=== PATIENT | female | born 1955 | race Caucasian/White ===

== ENCOUNTER 2023-12-26 19:03 | Inpatient (IN) | payer BC, OTHER ==
[2023-12-26 19:27] LABS: PT Prothrombin Time 11.6 SECONDS (9.4-12.5); Protime INR 1.04
[2023-12-26 19:30] LABS: Absolute Basophils 0.1 K/uL (0-0.5); Absolute Eosinophils 0.2 K/uL (0-0.5); Absolute Lymphocytes (CBC) 4.3 K/uL (0.7-4.9); Absolute Monocytes 0.5 K/uL (0.1-1.3); Absolute Neutrophil 6.7 K/uL (1.8-8.0); Basophils % 0.5 % (0-1.3); Hematocrit 40.6 % (36.0-45.0); Hemoglobin 13.6 g/dL (12.0-15.0); Lymphocytes % 36.1 % (15.3-44.8); MCH 30.5 pg (27.0-35.0); MCHC 33.5 g/dL (32.0-36.0); MCV 91.1 fL (80-100); MPV 8.6 fL (7.6-11.3); Monocytes % 4.5 % (3.3-12.3); Neutrophils % 56.9 % (41.7-73.7); Nucleated Red Blood Cells % 0.1 % (0-0); Platelets 239 thou/uL (152-406); RBC Red Blood Cell Count 4.45 M/uL (3.86-4.86)
[2023-12-26 19:39] LABS: Anion Gap 9.9 mEq/L (5.0-15.0); Potassium 3.9 mEq/L (3.5-5.1)
--- NOTE | 2023-12-26 19:51 | RAD REPORT ---
EXAMINATION: ONE VIEW CHEST XR CLINICAL INDICATION: COPD TECHNIQUE: Frontal chest projection is submitted. Examination is limited by patient positioning and t echnique. COMPARISON: No prior exam. FINDINGS: The lungs are diffusely emphysematous but grossly clear. The heart is upper limit of normal in size. No displaced fractures identified. IMPRESSION: COPD without an acute process suspected.
[2023-12-26] MEDS ORDERED: ONDANSETRON 4 MG/2 ML VIAL ONE (19:58)
[2023-12-26] MEDS ORDERED: CEFTRIAXONE 1000 MG/VIAL ONE (19:58)
[2023-12-26] MEDS ORDERED: NA CHLORIDE 0.9% 50 ML ONE (19:59)
--- NOTE | 2023-12-26 20:08 | EDPHYS ---
Physician Documentation [facility] Name: Kaia Chris Age: 68 yrs Sex: Female : 1955 Arrival Date: 12/26/2023 Time: 19:03 Bed 4 Private MD: ED Physician Cheryle Ramos HPI: 12/25 19:50 This 68 yrs old Female presents to ER via EMS with complaints of Shortness Of Breath. ci 19:50 Patient is a 68-year-old female with PMH COPD who presents to the ED with chief ci complaint of respiratory distress, shortness of breath that began this evening. Patient was at [facility] smoking she became hypoxic. Upon EMS arrival, patient was hypoxic at 78%, placed on BiPAP. Patient received Solu-Medrol 125 mg, magnesium, nebulizer treatments prior to arrival.. Historical: - Allergies: 19:09 NSAIDS; kc6 21:47 Iodine; mt4 - Home Meds: 19:09 Unable to obtain [Active]; kc6 - PMHx: 19:09 Chronic obstructive lung disease; kc6 - PSHx: 19:09 section; Cholecystectomy; kc6 - Immunization history:: Adult Immunizations unknown. - Infectious Disease History:: Denies. - Social history:: Smoking status: Patient reports the use of cigarette tobacco products, smokes one pack cigarettes per day. - History obtained from: EMS. ROS: 19:50 Constitutional: Negative for fever, chills, and weight loss, ci 19:50 Respiratory: Positive for shortness of breath, wheezing, 19:50 Abdomen/GI: Positive for Negative for nausea, vomiting, and diarrhea, 19:50 Neuro: Negative for altered mental status, headache, Exam: 19:50 Constitutional: This is a well developed, well nourished patient who is awake, alert, ci and in no acute distress. Head/Face: Normocephalic, atraumatic. 19:50 Respiratory: Breath sounds: wheezing: expiratory that is moderate, is heard diffusely, 19:50 ECG was reviewed by the Attending Physician. EKG shows normal sinus rhythm, LBBB, HR 80 ci 19:50 Eyes: Pupils equal round and reactive to light, extra-ocular motions intact. Lids and ci lashes normal. Conjunctiva and sclera are non-icteric and not injected. Cornea within normal limits. Periorbital areas with no swelling, redness, or edema. ENT: Nares patent. No nasal discharge, no septal abnormalities noted. Tympanic membranes are normal and external auditory canals are clear. Oropharynx with no redness, swelling, or masses, exudates, or evidence of obstruction, uvula midline. Mucous membranes moist. Neck: Trachea midline, no thyromegaly or masses palpated, and no cervical lymphadenopathy. Supple, full range of motion without nuchal rigidity, or vertebral point tenderness. No Meningismus. Chest/axilla: Normal chest wall appearance and motion. Nontender with no deformity. No lesions are appreciated. Cardiovascular: Regular rate and rhythm with a normal S1 and S2. No gallops, murmurs, or rubs. Normal PMI, no JVD. No pulse deficits. Abdomen/GI: Soft, non-tender, with normal bowel sounds. No distension or tympany. No guarding or rebound. No evidence of tenderness throughout. Skin: Warm, dry with normal turgor. Normal color with no rashes, no lesions, and no evidence of cellulitis. Neuro: Awake and alert, GCS 15, oriented to person, place, time, and situation. Cranial nerves II-XII grossly intact. Motor strength 5/5 in all extremities. Sensory grossly intact. Cerebellar exam normal. Normal gait. Vital Signs: 19:05 BP 154 / 74; Pulse 83; Resp 25 S; Temp 97.6(A); Pulse Ox 100% on BiPAP; kc6 20:13 BP 140 / 68; Pulse 74; Resp 15; Pulse Ox 100% on BiPAP; mt4 20:25 Temp 96.8(A); mt4 21:37 BP 142 / 66; Pulse 72; Resp 19; Pulse Ox 100% on BiPAP; mt4 MDM: 19:05 Medical Screening Exam initiated ci 19:50 Differential diagnosis: asthma, CHF exacerbation, Chronic Obstructive Pulmonary Disease ci pneumonia, pulmonary edema, Sepsis. Data reviewed: vital signs, nurses notes. ED course: Presents with respiratory distress, improving on arrival. Patient on the CPAP, will obtain labs, imaging and admit for further management.. 20:05 ED course: I have personally spent 45 minutes of critical care time, exclusive of time ci spent on any procedures, in evaluation and management of this critically ill patient's condition of respiratory failure. I provided the following critical care treatment noninvasive mechanical ventilation . 12/25 19:06 Order name: Basic Metabolic Panel; Complete Time: 19:49 ci 12/25 19:06 Order name: CBC with Diff; Complete Time: 19:49 ci 12/25 19:06 Order name: NT PRO-BNP; Complete Time: 19:49 ci 12/25 19:55 Interpretation: Abnormal: NT PRO-BNP 960. ci 12/25 19:06 Order name: Troponin HS; Complete Time: 19:49 ci 12/25 19:06 Order name: Blood Culture Adult (2) ci 12/25 19:06 Order name: Lactate w/ 2H reflex if indic.; Complete Time: 19:49 ci 12/25 19:55 Interpretation: Abnormal: LAC 3.4. ci 12/25 19:06 Order name: Protime (+inr); Complete Time: 19:49 ci 12/25 19:06 Order name: Ptt, Activated; Complete Time: 19:49 ci 12/25 19:06 Order name: ABG ci 12/25 20:38 Order name: CBC with Automated Diff EDMS 12/25 20:38 Order name: Comprehensive Metabolic Panel EDMS 12/25 20:38 Order name: Creatine Phosphokinase EDMS 12/25 20:38 Order name: Lactate w/ 2H reflex if indic. EDMS 12/25 20:38 Order name: Liver (Hepatic) Function EDMS 12/25 20:38 Order name: Magnesium EDMS 12/25 20:38 Order name: NT PRO-BNP EDMS 12/25 20:38 Order name: Phosphorus EDMS 12/25 20:38 Order name: PTT, Activated Partial Thromb EDMS 12/25 20:38 Order name: Thyroid Stimulating Hormone EDMS 12/25 20:38 Order name: Urinalysis w/ reflexes EDMS 12/25 20:38 Order name: Lipid Profile EDMS 12/25 20:38 Order name: Lipid Profile EDMS 12/25 21:41 Order name: Ghost Lactate-NO COLLECT Timer EDMS 12/25 19:06 Order name: XRAY Chest (1 view); Complete Time: 19:54 ci 12/25 20:39 Order name: Chest For Pe Angio EDMS 12/25 20:38 Order name: CONS Physician Consult EDMS 12/25 20:38 Order name: Respiratory Therapy Consult EDMS 12/25 19:06 Order name: Cardiac monitoring; Complete Time: 19:13 ci 12/25 19:06 Order name: EKG - Nurse/Tech; Complete Time: 19:21 ci 12/25 19:06 Order name: IV Saline Lock; Complete Time: 19:13 ci 12/25 19:06 Order name: Labs collected and sent ci 12/25 19:06 Order name: O2 Per Protocol; Complete Time: 19:13 ci 12/25 19:06 Order name: O2 Sat Monitoring; Complete Time: 19:13 ci Administered Medications: 20:08 Not Given (Duplicate Order): ondansetron 2 mg IVP once; over 2 minutes ci 20:12 Drug: Rocephin IV 1 grams IV at calculated rate once; Given slow IV push per pharmacy mt4 instructions Route: IV; Rate: calculated rate; Site: left wrist; 21:06 Follow up: Response: No adverse reaction mt4 22:00 Follow up: Response: No adverse reaction; IV Status: Completed infusion; IV Intake: [id number] 20:12 Drug: Ondansetron IVP 4 mg IVP once; over 2 minutes Route: IVP; Site: left wrist; mt4 21:05 Follow up: Response: No adverse reaction mt4 Disposition: 20:05 Critical Care:. ci Disposition Summary: 12/26/23 20:06 Hospitalization Ordered Notes: Hospitalization Status: Inpatient Admission ci Provider: Raegan Murguia Condition: Fair ci Problem: an acute exacerbation ci Symptoms: are unchanged ci Bed/Room Type: Standard ci Location: Intensive Care Unit(12/26/23 20:47) ci Room Assignment: 2-(12/26/23 20:48) [facility] Diagnosis - COPD/ Chronic obstructive pulmonary disease with (acute) exacerbation ci Forms: - Medication Reconciliation Form ci - SBAR form ci - Leadership Thank You Letter ci Critical care time excluding procedures: 20:05 Critical care time: Bedside Care: 45 minutes. Total time: 45 minutes ci Signatures: Dispatcher [employer] EDAnastasia Horan, RN RN kc6 Cheryle Ramos Kelsey Maroul [facility] Toan Billingsley RN RN mt4 Zion Marsh RN bm8 Corrections: (The following items were deleted from the chart) 19:07 19:07 BASIC METABOLIC PANEL+C.LAB.BRZ ordered. EDMS EDMS 19: 19:07 CBC+H.LAB.BRZ ordered. EDMS EDMS 19: 19:07 PROBNP+C.LAB.BRZ ordered. EDMS EDMS 19: 19:07 Troponin High Sensitivity+C.LAB.BRZ ordered. EDMS EDMS 19: 19:07 BLOOD CULTURE*+BA.LAB.BRZ ordered. EDMS EDMS 19: 19:07 LACTATE+C.LAB.BRZ ordered. EDMS EDMS 19: 19:07 PROTIME (+INR)+COAG.LAB.BRZ ordered. EDMS EDMS 19: 19:07 PTT, ACTIVATED+COAG.LAB.BRZ ordered. EDMS EDMS 19: 19:07 Chest Single View+RAD.RAD.BRZ ordered. EDMS EDMS 19: 19:07 Arterial Blood Gas+RC.LAB.BRZ ordered. EDMS EDMS 19:53 19:50 Respiratory: Breath sounds: wheezing: expiratory that is moderate, is heard ci diffusely, ci 20:47 20:06 Telemetry/MedSurg (Inpatient) ci ci 20:47 20:06 ci ci 20:48 20:47 ci kmf
--- NOTE | 2023-12-26 20:08 | ER ---
Nurse's Notes [facility] Name: Kaia Chris Age: 68 yrs Sex: Female : 1955 Arrival Date: 12/26/2023 Time: 19:03 Bed 4 Private MD: Diagnosis: COPD/ Chronic obstructive pulmonary disease with (acute) exacerbation Presentation: 12/25 19:05 Chief complaint: EMS states: sudden onset SOB that started 30min [employer] while smoking a kc6 cigarette outside of [facility]. pt attempted to use her rescue inhaler with no relief. EMS reports SPO2 of 78% on RA, pt placed on bipap and SPO2 increased to 100%. Coronavirus screen: At this time, the client does not indicate any symptoms associated with coronavirus-19. Ebola Screen: No symptoms or risks identified at this time. Initial Sepsis Screen: Does the patient meet any 2 criteria? RR > 20 per min. Does the patient have a suspected source of infection? No. Patient's initial sepsis screen is negative. Risk Assessment: Do you want to hurt yourself or someone else? Patient reports no desire to harm self or others. Onset of symptoms was December 26, 2023. Care prior to arrival: Medication(s) given: Albuterol Neb x 1, Atrovent Neb x 1, 2gm magnesium IV, 125mg Solu-Medrol IV IV initiated. 20 GA, in the right antecubital area, Glucose check: 160 Oxygen administered. via CPAP or BiPAP. 19:05 Method Of Arrival: EMS: [facility] kc6 19:05 Acuity: BEVERLY 2 kc6 Triage Assessment: 19:09 General: Appears distressed, uncomfortable, well groomed, well developed, Behavior is kc6 drowsy. EENT: No signs and/or symptoms were reported regarding the EENT system. Neuro: Level of Consciousness is obeys commands, lethargic, Oriented to person, place, time, situation, Appropriate for age. Cardiovascular: Capillary refill < 3 seconds. Respiratory: Reports shortness of breath at rest on exertion Airway is patent Trachea midline Respiratory effort is even, labored, pursed lip, using tripod position, Respiratory pattern is symmetrical, hyperventilation tachypnea Onset: The symptoms/episode began/occurred just prior to arrival, the patient has moderate shortness of breath. GI: Reports nausea. : No signs and/or symptoms were reported regarding the genitourinary system. Derm: No signs and/or symptoms reported regarding the dermatologic system. Skin is intact, is healthy with good turgor, Skin is pink, warm \T\ dry. Musculoskeletal: No signs and/or symptoms reported regarding the musculoskeletal system. Circulation, motion, and sensation intact. Capillary refill < 3 seconds, Range of motion: intact in all extremities. Historical: - Allergies: 19:09 NSAIDS; kc6 21:47 Iodine; mt4 - Home Meds: 19:09 Unable to obtain [Active]; kc6 - PMHx: 19:09 Chronic obstructive lung disease; kc6 - PSHx: 19:09 section; Cholecystectomy; kc6 - Immunization history:: Adult Immunizations unknown. - Infectious Disease History:: Denies. - Social history:: Smoking status: Patient reports the use of cigarette tobacco products, smokes one pack cigarettes per day. - History obtained from: EMS. Screenin:12 [facility] ED Fall Risk Assessment (Adult) History of falling in the last 3 months, kc6 including since admission No falls in past 3 months (0 pts) Confusion or Disorientation No (0 pts) Intoxicated or Sedated No (0 pts) Impaired Gait No (0 pts) Mobility Assist Device Used No (0 pt) Altered Elimination No (0 pt) Score/Fall Risk Level 0 - 2 = Low Risk Oriented to surroundings. Abuse screen: Denies threats or abuse. Denies injuries from another. Nutritional screening: No deficits noted. Tuberculosis screening: No symptoms or risk factors identified. Assessment: 19:12 Reassessment: code sepsis called, pt transferred from EMS bipap to hospital bipap with kc6 RT at bedside. 21:50 Pain: Complains of pain in chest. Cardiovascular: Capillary refill < 3 seconds Rhythm mt4 is sinus rhythm sinus rhythm with BBB. Respiratory: Airway is patent Respiratory effort is even, unlabored, Respiratory pattern is regular, Patient placed on BiPAP: Breath sounds are diminished bilaterally. GI:. 22:17 Reassessment: during preparation for transport, pt told she will get a CT scan with mt4 contrast. Patient states she does not want contrast, states allergy. I asked patient what is does to her when she got contrast in the past, patient states it gives her a warm feeling and does not like how it makes her feel. This nurse educated on contrast. Paitient still insist this nurse list as an allergy in chart. patient taken to CT before admission into ICU. CT made aware of patient's iodine concern. automotive glass technician educated patient on side effects of iodine, patient then agreed to get CT with contrast, once finished and patient transported to ICU bed 2, and this nurse reported about the iodine concerns with receiving nurse. Vital Signs: 19:05 BP 154 / 74; Pulse 83; Resp 25 S; Temp 97.6(A); Pulse Ox 100% on BiPAP; kc6 20:13 BP 140 / 68; Pulse 74; Resp 15; Pulse Ox 100% on BiPAP; mt4 20:25 Temp 96.8(A); mt4 21:37 BP 142 / 66; Pulse 72; Resp 19; Pulse Ox 100% on BiPAP; mt4 ED Course: 19:04 Patient arrived in ED. kc6 19:05 Cheryle Rmaos is Attending Physician. ci 19:09 Triage completed. kc6 19:09 Arm band placed on. kc6 19:10 Initial lab(s) drawn, by me, sent to lab. First set of blood cultures drawn by me, EKG bm8 done, by ED staff, reviewed by Cheryle Ramos. 19:11 Patient has correct armband on for positive identification. Placed in gown. Bed in low kc6 position. Call light in reach. Side rails up X2. property assessment monitor on. Pulse ox on. NIBP on. Door closed. Noise minimized. Lights dimmed. Warm blanket given. Pillow given. 19:12 Maintain EMS IV. Dressing intact. Good blood return noted. Site clean \T\ dry. Gauge \T\ nicole 6 site: 20G RAC. Flushed with 10 mL NS. 19:13 Report given to VALERIA Donovan \T\ VALERIA Patten. kc6 19:16 Zion Marsh RN is Primary Nurse. bm8 19:16 Inserted saline lock: 20 gauge in left forearm, using aseptic technique. Blood bm8 collected. Flushed with 10 mL NS. 19:34 XRAY Chest (1 view) In Process Unspecified. EDMS 20:06 Raegan Murguia MD is Hospitalizing Provider. ci 22:01 Provided Education on: need for admission. bm8 22:01 No provider procedures requiring assistance completed. Patient admitted, IV remains in bm8 place. Administered Medications: 20:08 Not Given (Duplicate Order): ondansetron 2 mg IVP once; over 2 minutes ci 20:12 Drug: Rocephin IV 1 grams IV at calculated rate once; Given slow IV push per pharmacy mt4 instructions Route: IV; Rate: calculated rate; Site: left wrist; 21:06 Follow up: Response: No adverse reaction mt4 22:00 Follow up: Response: No adverse reaction; IV Status: Completed infusion; IV Intake: [id number] 20:12 Drug: Ondansetron IVP 4 mg IVP once; over 2 minutes Route: IVP; Site: left wrist; mt4 21:05 Follow up: Response: No adverse reaction mt4 Medication: 22:01 VIS not applicable for this client. bm8 Intake: 22:00 IV: 10ml; Total: 10ml. bm8 Outcome: 20:06 Decision to Hospitalize by Provider. ci 22:01 Admitted to ICU accompanied by nurse, via stretcher, room 4, with chart, bm8 22:01 Condition: stable 22:01 Instructed on the need for admit, Demonstrated understanding of instructions, follow-up care, medications, 22:02 Patient left the ED. 8 Signatures: Dispatcher [employer] EDMS Anastasia Figueroa, RN RN kc6 Cheryle Ramos Brad RN RN bm8 Toan Billingsley RN RN mt4 Corrections: (The following items were deleted from the chart) 19:11 19:09 GI: No signs and/or symptoms were reported involving the gastrointestinal system. kc6 kc6
[2023-12-26] MEDS ORDERED: ALBUTEROL 2.5 MG/3 ML NEB SOL NEB PRN (20:31)
--- NOTE | 2023-12-26 20:45 | P.HP ---
Certification for Inpatient With expected LOS: <2 Midnights Practitioner: I am a practitioner with admitting privileges, knowledge of patient current condition, hospital course, and medical plan of care. Services: Services provided to patient in accordance with Admission requirements found in Title 42 Section 412.3 of the Code of Federal Regulations Patient History Date of Service: 12/26/23 Reason for admission: COPD exacerbation, acute respiratory failure History of Present Illness: 68-year-old woman with a past medical history significant for COPD presented to the emergency department today complaining of shortness of breath. Upon arrival, the patient was placed on BiPAP for hypoxia, given 1 dose of ceftriaxone, and given methylprednisolone during EMS transfer. The patient's family is present at bedside and provides the majority of this history. The patient is unable to speak at this time, but does follow simple commands. The patient's family states they were shopping earlier, and the patient was smoking a cigarette when she suddenly became short of breath and "nearly passed out". Patient's family states that she smokes 6 to 7 packs of cigarettes a week. The patient's family states she does not have a history of COPD exacerbations, has never been intubated, and has never been hospitalized for shortness of breath. Patient is not on home oxygen. - Past Medical/Surgical History -: COPD Past Surgical History: Unable to obtain - Social History Smoking Status: Current every day smoker (6-7 packs/week) Alcohol use: No Review of Systems Respiratory: Shortness of Breath, SOB with Excertion Physical Examination - Vital Signs Temperature: 96.8 F Blood Pressure: 140/68 Pulse: 76 Respirations: 20 - Physical Exam General: Alert, Mild distress HEENT: Atraumatic, Normocephalic Neck: JVD not distended Respiratory: Crackles/rales (right more than left lung) Cardiovascular: No gallops, No murmurs Gastrointestinal: Normal bowel sounds, Non-distended Musculoskeletal: No swelling, No erythema, No tenderness, No warmth Neurological: Normal strength at 5/5 x4 extr, Sensation intact - Studies Laboratory Data (last 24 hrs) 12/26/23 12/26/23 12/26/23 19:10 19:10 19:10 WBC 11.80 H Hgb 13.6 Hct 40.6 Plt Count 239 PT 11.6 INR 1.04 APTT 29.0 Sodium 141 Potassium 3.9 BUN 14 Creatinine 1.42 H Glucose 140 H Assessment and Plan - Problems (Diagnosis) (1) COPD exacerbation Current Visit: Yes Status: Acute (2) Acute respiratory failure Current Visit: Yes Status: Acute Qualifiers: Respiratory failure complication: hypoxia Qualified Code(s): J96.01 - Acute respiratory failure with hypoxia - Plan COPD exacerbation: Admit to ICU Continue with oxygen via BiPAP IV ceftriaxone ordered IV doxycycline ordered (no azithromycin due to prolonged QT) IV methylprednisolone ordered Acute respiratory failure: Continue with oxygen via BiPAP Pulmonology consulted Respiratory therapy consulted CT chest ordered to rule out pulmonary embolism - Advance Directives Does patient have a Living Will: No Does patient have a Durable POA for Healthcare: No - Code Status/Comfort Care Code Status: Full Code
[2023-12-26] MEDS: DOXYCYCLINE 100 MG in NA CHLORIDE 0.9% 100 ML IVPB SCH ×2 (21:00→23:00)
[2023-12-26 21:03] LABS: Arterial Blood Carboxyhemoglob 1.6 % (0-1.5); Blood Gas Oxyhemoglobin 95.7 % (94-97); Blood Gas THB 13.4 g/dl (12-18); Blood O2 Saturation 99.1 % (92-98.5)
[2023-12-26] MEDS: CEFTRIAXONE 1,000 MG in NA CHLORIDE 0.9% 50 ML IVPB SCH (22:00)
--- NOTE | 2023-12-26 22:22 | RAD REPORT ---
EXAMINATION: CTA CHEST PE CLINICAL INDICATION: rule out pulmonary embolism TECHNIQUE: This examination was performed according to an angiographic protocol with 3D post-processi ng. This involves 3D reconstructions, MIPs, volume rendered images and/or shaded surface rendering. One or more of the following dose reduction techniques were used: Automated exposure control, adjustm ent of the mA and/or kV according to patient size, and/or iterative reconstruction. Unless otherwise specified, incidental findings do not require dedicated imaging follow-up. COMPARISON: No prior exam. FINDINGS: PULMONARY ARTERIES: Normal caliber. No evidence of pulmonary emboli to the subsegmental level. THORACIC AORTA: Normal caliber and configuration. LUNGS: Mild emphysematous pattern is observed. Linear scarring versus atelectasis medial left upper l baljinder field. 2 nodular densities abut the left anterior mediastinal pleura measuring 10 mm and 9 mm. PLEURA: No pleural effusion. No pneumothorax. MEDIASTINUM AND LYMPH NODES: No mediastinal mass or fluid collection. Normal size mediastinal, hilar, and axillary lymph nodes. OSSEOUS STRUCTURES AND CHEST WALL: Intact. UPPER ABDOMEN: No significant abnormalities. IMPRESSION: No evidence of pulmonary emboli to the subsegmental level. Mild COPD. Nodular lesions along the anterior mediastinal pleural surface correlating to the medial aspect of th e anterior left upper lobe are indeterminant. Follow-up CT chest is recommended in 6 months for monitoring purposes. Alternatively, nonemergent PET/CT may be considered.
[2023-12-26 22:39] VITALS: BMI 34.4
[2023-12-27] MEDS: DOXYCYCLINE 100 MG in NA CHLORIDE 0.9% 100 ML IVPB ONE
[2023-12-27] MEDS: METHYLPREDNISOLONE 125 MG INJ IV SCH (00:01)
[2023-12-27] MEDS: HEPARIN 5000 UNIT/ML 1 ML VIAL SQ SCH (00:01)
[2023-12-27] MEDS: IPRATROPIUM BROM 0.5MG/2.5ML NEB SCH (01:13)
[2023-12-27] MEDS: ONDANSETRON 4 MG/2 ML VIAL IV PRN (03:09)
[2023-12-27] MEDS: ACETAMINOPHEN 325 MG TABLET PO PRN (05:10)
[2023-12-27 05:14] LABS: Absolute Lymphocytes (CBC) 0.9 K/uL (0.7-4.9); Absolute Neutrophil 9.5 K/uL (1.8-8.0); Basophils % 0.2 % (0-1.3); Hematocrit 37.4 % (36.0-45.0); Hemoglobin 12.7 g/dL (12.0-15.0); Lymphocytes % 8.4 % (15.3-44.8); MCH 30.9 pg (27.0-35.0); MCV 90.8 fL (80-100); MPV 9.1 fL (7.6-11.3); Monocytes % 0.4 % (3.3-12.3); Nucleated Red Blood Cells % 0.1 % (0-0); Platelets 215 thou/uL (152-406); RBC Red Blood Cell Count 4.11 M/uL (3.86-4.86); Red Cell Distribution Width 14.9 % (12.1-15.2)
[2023-12-27 05:46] LABS: ALT/SGPT 91 U/L (13-56); AST/SGOT 61 U/L (15-37); Albumin 3.1 g/dL (3.4-5.0); Albumin/Globulin Ratio 0.9 (1.1-1.8); Alkaline Phosphatase 110 U/L (45-117); Anion Gap 7.1 mEq/L (5.0-15.0); BUN Blood Urea Nitrogen 15 mg/dL (7-18); Bicarbonate 27 mEq/L (21-32); Bilirubin Total 0.2 mg/dL (0.2-1.0); Creatine Phosphokinase 235 U/L (26-192); Globulin 3.6 g/dL (2.3-3.5); Glomerular Filtration Rate 43 ml/min (=/>90); Glucose Level 229 mg/dL (74-106); Magnesium 2.2 mg/dL (1.6-2.4); NT PRO-BNP 1765 pg/mL (<125); Potassium 4.1 mEq/L (3.5-5.1); Protein, Total 6.7 g/dL (6.4-8.2); Sodium Level 140 mEq/L (136-145)
[2023-12-27 05:49] LABS: Bilirubin Direct < 0.2 mg/dL (0-0.2)
[2023-12-27 06:20] LABS: Specific Gravity 1.023 (1.005-1.030); Sqamous Epithelial <5 /HPF (None Seen); Urine Bacteria None Seen /HPF (<20); Urine Bilirubin NEGATIVE (Negative); Urine Blood Negative (Negative); Urine Clarity Clear (Clear); Urine Color Colorless (Yellow); Urine Culture Reflex Order NOT NEEDED; Urine Glucose NEGATIVE (Negative); Urine Ketones NEGATIVE (Negative); Urine Microscopic Reflex YN ORDER UMIC; Urine Mucus Slight /HPF (None Seen); Urine Nitrite NEGATIVE (Negative); Urine Protein NEGATIVE (Negative); Urine RBC <5 /HPF (None Seen); Urine Urobilinogen Normal (Normal); Urine WBC <5 /HPF (<5)
[2023-12-27 06:45] LABS: Blood Morphology Comment NOT SEEN (NOT SEEN); Differential Total Cells Count 100; Eosinophils 1 % (0-3); Lymphocytes 5 % (15-42); Monocytes 2 % (0-10); Platelet Estimate ADEQ; Segmented Neutrophils 92 % (40-80)
[2023-12-27] MEDS: FLU (Fluarix Triv) TS24-25(6MOS UP)/PF 45 MCG/0.5 ML Syringe IM ONE (07:30)
[2023-12-27] MEDS: POTASS/SODIUM PHOSPHATE 1 PKT POWD.PACK PO SCH (08:51)
[2023-12-27] MEDS: DOXYCYCLINE 100 MG in NA CHLORIDE 0.9% 100 ML IVPB SCH (08:53)
--- NOTE | 2023-12-27 12:44 | P.CNS ---
Date of Consult: 12/27/23 Reason for Consult: COPD exacerbation Chief Complaint: COPD exacerbation, acute respiratory failure History of Present Illness: Is 68 years of age with a history of COPD Sister was under a lot of distress was waiting in the car park after acute onset of anxiety respiratory distress and it appeared in the hospital smoker 1-1/2 to 2 packs a day short acting bronchodilators at home denies any fever or chills feeling much better Allergies NSAIDS (Non-Steroidal Anti-Inflamma Allergy (Verified 12/26/23 21:56) Anaphylaxis Home Medications: Albuterol Sulfate [Albuterol Sulfate Hfa] 1 aer NEB DAILYPRN PRN 12/26/23 Albuterol Sulfate [Albuterol Sulfate Hfa] 2 puff IH Q4HP PRN 12/26/23 Atorvastatin Calcium [Lipitor] 40 mg PO BEDTIME 12/26/23 Eszopiclone [Lunesta] 2 mg PO BEDTIME 12/26/23 Levothyroxine Sodium 112 mcg PO DAILY 12/26/23 - Past Medical/Surgical History Diabetic: No -: COPD -: Divertiticulitis -: Insomnia -: Hypothyroid -: Vision changes -: HTN -: Vianey - Family History Mother Medical History: Heart disease, Diabetes Father Medical History: Heart disease, Lung disease Sister Medical History: Cancer Notes: Bile duct cancer - Social History Smoking Status: Current every day smoker Alcohol use: Yes CD- Drugs: No Caffeine use: Yes Place of Residence: Home Review of Systems General: Weakness Respiratory: Cough, Shortness of Breath Physical Examination Temp Pulse Resp BP Pulse Ox 98.0 F 71 20 145/58 H 96 12/27/23 12:00 12/27/23 12:00 12/27/23 12:00 12/27/23 12:00 12/27/23 12:00 General: Alert, Oriented x3 Neck: Supple Respiratory: Clear to auscultation bilaterally, Diminished Cardiovascular: No edema, Normal pulses Gastrointestinal: Normal bowel sounds, Soft and benign Laboratory Data (last 24 hrs) 12/26/23 12/26/23 12/26/23 19:10 19:10 19:10 WBC 11.80 H Hgb 13.6 Hct 40.6 Plt Count 239 PT 11.6 INR 1.04 APTT 29.0 Sodium 141 Potassium 3.9 BUN 14 Creatinine 1.42 H Glucose 140 H
--- NOTE | 2023-12-27 12:46 | P.PN ---
Subjective Date of Service: 12/27/23 Chief Complaint: COPD exacerbation, acute respiratory failure Patient states she feels much better today. She has been weaned off BiPAP to room air. She is alert and oriented. Physical Examination - Vital Signs Temperature: 98.0 F Blood Pressure: 145/58 Pulse: 71 Respirations: 20 Pulse Ox (%): 96 - Studies Laboratory Data (last 24 hrs) 12/26/23 12/26/23 12/26/23 19:10 19:10 19:10 WBC 11.80 H Hgb 13.6 Hct 40.6 Plt Count 239 PT 11.6 INR 1.04 APTT 29.0 Sodium 141 Potassium 3.9 BUN 14 Creatinine 1.42 H Glucose 140 H Assessment And Plan - Plan Physical examination General: Alert and oriented x3, NAD, HEENT: Conjunctiva not pale, anicteric sclera Neck: Supple, no elevated JVD Heart: Heart sounds 1 and 2 normal, regular rhythm, normal rate, no pedal edema Lungs: Clear to auscultation bilaterally, adequate breath sounds bilaterally, mild scattered rhonchi. Abdomen: Soft, nondistended, nontender, normal bowel sounds. Extremities: No tenderness, no deformity Skin: Normal skin turgor, no rash, no nodules or ulcers. Neuro: No focal motor deficit. Normal speech. Psychiatry: Normal mood, no agitation. Assessment and plan Acute respiratory failure with hypoxia COPD exacerbation Patient clinically improved and currently tolerating room air. Continue IV steroid for 1 more day and transition to p.o. prednisone Scheduled bronchodilators. IV antibiotics transition to oral cefdinir and Zithromax. Activity as tolerated Diet resumed. Hypothyroidism Resume home dose Synthroid. Check TSH. Hyperlipidemia Continue home dose Lipitor. Risk of discharge: Recurrence and complication of COPD with respiratory distress, hypoxia which may lead cardiac arrest, recurrent syncope. Patient need inpatient monitoring and to continue treatment for COPD exacerbation until adequate improvement before discharge. DVT prophylaxis: Heparin SQ Advanced directive: Full code
[2023-12-27] MEDS: AZITHROMYCIN 250 MG TAB PO SCH (12:56)
[2023-12-27] MEDS: PANTOPRAZOLE 40MG TABLET PO SCH (15:21)
[2023-12-27] MEDS: LEVOTHYROXINE SOD 0.112 MG TAB PO SCH (15:38)
[2023-12-27] MEDS: ALPRAZOLAM 0.25 MG TABLET PO ONE (15:38)
[2023-12-27] MEDS: CEFDINIR 300 MG CAP PO SCH (16:23)
[2023-12-27] MEDS ORDERED: ALBUTEROL 2.5 MG/3 ML NEB SOL NEB PRN (17:25)
[2023-12-27] MEDS: predniSONE 20 MG TAB PO SCH (19:54)
[2023-12-27] MEDS: ATORVASTATIN 40 MG TAB PO SCH (20:58)
[2023-12-27] MEDS: ESZOPICLONE 1 MG TAB PO SCH (20:58)
[2023-12-27] MEDS ORDERED: HOME MED 1 EA UNK (Eszopiclone [Lunesta] 2 MG Tablet) PO SCH (21:00)
[2023-12-27] MEDS: MAGNES/ALUMIN/SIMET 30ML UCUP PO PRN (21:33)
[2023-12-27] MEDS ORDERED: DOXYCYCLINE 100 MG in NA CHLORIDE 0.9% 100 ML IVPB SCH (22:00)
[2023-12-28 05:08] VITALS: BP 101/43
[2023-12-28 06:08] LABS: Anion Gap 4.9 mEq/L (5.0-15.0); Magnesium 2.2 mg/dL (1.6-2.4); Phosphorus 3.2 mg/dL (2.5-4.9); Potassium 4.9 mEq/L (3.5-5.1)
[2023-12-28 07:46] VITALS: O2SAT 99
[2023-12-28] MEDS: PANTOPRAZOLE 40MG TABLET PO SCH (08:04)
[2023-12-28] MEDS: AZITHROMYCIN 250 MG TAB PO SCH (08:05)
[2023-12-28 08:45] VITALS: TEMP 97.4
--- NOTE | 2023-12-28 09:11 | P.DS ---
Admission Date: 12/26/23 Discharge Date: 12/28/23 Disposition: ROUTINE DISCHARGE Discharge Condition: FAIR Reason for Admission: COPD exacerbation, acute respiratory failure Brief History of Present Illness: 68-year-old woman with a past medical history significant for COPD presented to the emergency department today complaining of shortness of breath. Upon arrival, the patient was placed on BiPAP for hypoxia, given 1 dose of ceftr iaxone. She was given methylprednisolone during EMS transfer. The patient was confused was not able to give any history. The patient's family states that the patient was smoking a cigarette when she suddenly became short of breath and "nearly passed out". She smokes 6 to 7 packs of cigarettes a week per family. Chest x-ray showed no infiltrate. CTA thorax showed signs of COPD and pulmonary nodules, no evidence of pulmonary embolism. Patient was hospitalized for further management. Hospital Course: The following medical problems were addressed during the hospital stay: Acute respiratory failure with hypoxia COPD exacerbation Patient treated with IV steroid, scheduled bronchodilators and IV antibiotic- Zithromax and Rocephin. Her respiratory status improved anf shewas weaned off BiPAP to oxygen by nasal cannula and then room air. Patient remained stable, IV steroid transition to p.o. prednisone. Pulmonary evaluated patient and assisted with management. Diet resumed. Patient overall clinically improved and deemed stable for discharge. She is discharged with scheduled Trelegy, oral prednisone and oral antibiotics. She has albuterol rescue inhaler. Lactic acidosis Likely secondary to hypoxia, and not sepsis. Hypothyroidism TSH measured was within normal limits Continued home dose Synthroid. Check TSH. Hyperlipidemia Continued home dose Lipitor. Anxiety Patient currently with a lot of family stress and looks anxious. She is prescribed low-dose Xanax Pulmonary nodules Repeat CT chest recommended within 6 months. This has been communicated to the patient. Vital Signs/Physical Exam: Temp Pulse Resp BP Pulse Ox 97.4 F 74 13 101/43 L 95 12/28/23 08:00 12/28/23 08:00 12/28/23 08:00 12/28/23 08:00 12/28/23 08:00 General: Alert, In no apparent distress, Oriented x3 HEENT: Mucous membr. moist/pink Neck: Supple, JVD not distended Respiratory: Clear to auscultation bilaterally, Normal air movement Cardiovascular: No edema, Regular rate/rhythm, Normal S1 S2 Gastrointestinal: Normal bowel sounds, Soft and benign, Non-distended Musculoskeletal: No swelling Integumentary: No rashes, No cyanosis Neurological: Normal strength at 5/5 x4 extr, Cranial nerves 3-12 intact Laboratory Data at Discharge: WBC 10.40 thou/uL (4.3-10.9) 12/27/23 04:54 Hgb 12.7 g/dL (12.0-15.0) 12/27/23 04:54 Hct 37.4 % (36.0-45.0) 12/27/23 04:54 Plt Count 215 thou/uL (152-406) 12/27/23 04:54 PT 11.6 SECONDS (9.4-12.5) 12/26/23 19:10 INR 1.04 12/26/23 19:10 APTT 30.0 SECONDS (24.3-36.9) 12/27/23 04:54 Sodium 142 mEq/L (136-145) 12/28/23 04:55 Potassium 4.9 mEq/L (3.5-5.1) D 12/28/23 04:55 BUN 13 mg/dL (7-18) 12/28/23 04:55 Creatinine 1.09 mg/dL (0.55-1.02) H 12/28/23 04:55 Glucose 113 mg/dL (74-106) H 12/28/23 04:55 Phosphorus 3.2 mg/dL (2.5-4.9) 12/28/23 04:55 Magnesium 2.2 mg/dL (1.6-2.4) 12/28/23 04:55 Total Bilirubin 0.2 mg/dL (0.2-1.0) 12/27/23 04:54 AST 61 U/L (15-37) H 12/27/23 04:54 ALT 91 U/L (13-56) H 12/27/23 04:54 Alkaline Phosphatase 110 U/L (45-117) 12/27/23 04:54 Triglycerides 44 mg/dL (<150) 12/27/23 04:54 Cholesterol 102 mg/dL (<200) 12/27/23 04:54 HDL Cholesterol 59 mg/dL (40-60) 12/27/23 04:54 Cholesterol/HDL Ratio 1.73 12/27/23 04:54 Home Medications: Albuterol Sulfate [Albuterol Sulfate Hfa] 1 aer NEB DAILYPRN PRN 12/26/23 Albuterol Sulfate [Albuterol Sulfate Hfa] 2 puff IH Q4HP PRN 12/26/23 Atorvastatin Calcium [Lipitor] 40 mg PO BEDTIME 12/26/23 Eszopiclone [Lunesta] 2 mg PO BEDTIME 12/26/23 Levothyroxine Sodium 112 mcg PO DAILY 12/26/23 Alprazolam [Xanax] 0.25 mg PO TID PRN #30 tab 12/28/23 Azithromycin Tab [Zithromax*] 250 mg PO DAILY #4 tab 12/28/23 Cefdinir [Cefdinir*] 300 mg PO BIDWM #10 cap 12/28/23 Fluticasone/Umeclidin/Vilanter [Trelegy Ellipta 200-62.5-25] 1 each IH DAILY #30 units 12/28/23 Mag Hydrox/Al Hydrox/Simeth [Maalox Suspension] 10 ml PO ACHS #355 ml 12/28/23 Pantoprazole [Protonix Tab*] 40 mg PO ACB #30 tab 12/28/23 predniSONE [Prednisone*] 20 mg PO BID #10 tab 12/28/23 New Medications: Cefdinir [Cefdinir*] 300 mg PO BIDWM #10 cap Mag Hydrox/Al Hydrox/Simeth [Maalox Suspension] 10 ml PO ACHS #355 ml predniSONE [Prednisone*] 20 mg PO BID #10 tab Pantoprazole [Protonix Tab*] 40 mg PO ACB #30 tab Fluticasone/Umeclidin/Vilanter [Trelegy Ellipta 200-62.5-25] 1 each IH DAILY #30 units Alprazolam [Xanax] 0.25 mg PO TID PRN #30 tab PRN Reason: Anxiety Azithromycin Tab [Zithromax*] 250 mg PO DAILY #4 tab Physician Discharge Instructions: PROBLEM: COPD exacerbation GOAL: Clear understanding of disease process INSTRUCTIONS: follow up with PCP in 1-2 weeks, return to ER for worsening symptoms Diet: Regular Activity: As tolerated DME DME: Date Ordered: Name of Company: [employer] Services Needed: Name of Company: Date or Referral: IMMUNIZATION Influenza Vaccine Indicated: Yes Influenza Vaccine Given: No Date Given: Pneumonia Vaccine Indicated: No Pneumonia Vaccine Given: No Date Given: Diet: Regular Activity: Ad jaja Followup: Shayla DAMIANOT [Primary Care Provider] - 1-2 Weeks Time spent managing pt's care (in minutes): 36
--- NOTE | 2023-12-31 12:26 | EKG ---
Test Date: 2023-12-26 Test Time: 19:09:52 Nuclear Medical Tech: EFREN MEASUREMENT RESULTS: Intervals: Rate: 80 [place]: 178 QRSD: 148 QT: 440 QTc: 507 [place]: P: 77 [place]: 178 QRS: 42 T: 96 INTERPRETIVE STATEMENTS: Normal sinus rhythm Left bundle branch block Abnormal ECG No previous ECG available for comparison Electronically Signed On 12-31-23 12:18:25 ONCOLOGY PHYSICIAN ASSISTANT by Ricci Rivera
== END 2023-12-28 12:00 | disposition home or self-care (01) | DRG 189 ==
LOC: ER 19:03 → 3RD-ICU 20:31
PROVIDERS: ADMIT Internal Medicine; ATTEND Internal Medicine
PROC: 5A09357 Assistance with Respiratory Ventilation, Less than 24 Consecutive Hours, Continuous Positive Airway Pressure (ICD-10-PCS; principal; 2023-12-26)
DX: J96.01 Acute respiratory failure with hypoxia (principal); J44.1 Chronic obstructive pulmonary disease with (acute) exacerbation; E87.21 Acute metabolic acidosis; Z72.0 Tobacco use; Z90.49 Acquired absence of other specified parts of digestive tract; E03.9 Hypothyroidism, unspecified; E78.5 Hyperlipidemia, unspecified; I10 Essential (primary) hypertension; F41.9 Anxiety disorder, unspecified
CPT/HCPCS: 36415; 36600; 71045; 71275; 80048; 80053; 80061; 81001; 82248; 82550; 82805; 83605; 83735; 83880; 84100; 84443; 84484; 85025; 85610; 85730; 87040; 93005; 94640; 94660; 94760; 96365; 96366; 96375; 99285; J0696; J1644; J2405; J2919; J7512; J7644; Q9967